=== PATIENT | male | born 1960 | race Caucasian/White ===

== ENCOUNTER 2019-09-13 07:24 | Observation (INO) | payer OTHER ==
[~2019-09-13] VITALS: Ht 182.9 cm; Wt 93.9 kg
[2019-09-13] MEDS ORDERED: XARELTO10 MG ORAL (07:25)
--- NOTE | 2019-09-13 07:30 | NUR ---
ED Nurse Note: Pt BIB RA 829 from home d/t dizziness x4 hours. Pt aox4, denies nausea/vomiting. Placed on hospital gown, cont. cardiac monitor technician showing normal sinus rhythm, and cont. pulse ox; patient saturating 97% on room air. No acute respiratory distress noted. IV access established on right AC, pt tolerated well. Blood collected and sent to lab. ERMD at bedside. Will continue to monitor patient.
--- NOTE | 2019-09-13 07:42 | Emergency Room Report ---
History of Present Illness General Chief Complaint: Dizziness Source: Patient Present Illness HPI Patient presents with 4 hours of dizziness. This started when he was watching TV. He says his equilibrium is off and he has problems standing where he falls backwards. He denies any headache. He feels a strange sensation radiating from the back of his head down his shoulders. He has never had this before. Denies chest pain. Denies palpitations. Patient has a history of atrial fibrillation. He takes Xarelto. He is not on any other medications. Patient is disabled from bipolar disorder and also osteoarthritis of his lower back. No sore throat, nausea, vomiting, diarrhea, dysuria, abdominal pain, shortness of breath, joint pain, rashes, depression, anxiety, visual changes. 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 Reviewed Nursing Documentation: PMH: Agreed; PSxH: Agreed Nursing Documentation-PMH Past Medical History: No History, Except For Review of Systems All Other Systems: negative except mentioned in HPI Physical Exam Vital Signs Date Time Temp Pulse Resp B/P (MAP) Pulse Ox O2 Delivery O2 Flow Rate FiO2 09/13/19 07:21 98.2 90 18 142/84 (103) 98 Room Air Sp02 EP Interpretation: reviewed, normal General Appearance: well appearing, no apparent distress, GCS 15 Head: normocephalic, atraumatic Eyes: bilateral eye EOMI, bilateral eye other - Bilateral Silastic lenses ENT: moist mucus membranes Neck: full range of motion, supple Respiratory: lungs clear, normal breath sounds Cardiovascular #1: regular rate, rhythm, no edema Cardiovascular #2: 2+ radial (R) Gastrointestinal: normal inspection, normal bowel sounds, non tender, no mass, non-distended Musculoskeletal: back normal, gait/station normal, normal range of motion Neurologic: alert, oriented x3, accounting administrative assistant III-XII nml as tested, motor strength/tone normal, DTRs symmetric, sensory intact, speech normal, other - Positive Romberg Psychiatric: mood/affect normal Skin: no rash, warm/dry Medical Decision Making Diagnostic Impression: Primary Impression: Romberg's test positive Additional Impression: Polycythemia ER Course Patient presents with new onset of unstable equilibrium with a strange sensation in the back of his head rating down to his shoulders. Differential includes CVA, posterior bleed on Xarelto, arrhythmia, TIA, anxiety, electrolyte imbalance amongst others. Evaluation with EKG, chest x-ray, MRI of the brain, brainstem and MRA of the circulation. Labs will be obtained also. Repeat neurologic exams indicated. In addition the patient is placed in on the monitor and storage bin tender. The patient is outside of the window for TPA. In addition to that he is on Xarelto. EKG normal sinus rhythm with Q waves inferiorly and P pulmonale. CXR neg. Elevated H/H. CMP normal. MRI without lesion. Baby aspirin given. Patient still with + Romberg. Etiology unclear. The acute nature of this still could be early stroke or TIA. The relationship with the high hemoglobin is unclear. IV hydration begun. Admit tele. Laboratory Tests Test 09/13/19 07:30 09/13/19 09:10 White Blood Count 11.6 K/UL (4.8-10.8) H Red Blood Count 6.22 M/UL (4.70-6.10) H Hemoglobin 20.3 G/DL (14.2-18.0) *H Hematocrit 58.7 % (42.0-52.0) H Mean Corpuscular Volume 94 FL (80-99) Mean Corpuscular Hemoglobin 32.6 PG (27.0-31.0) H Mean Corpuscular Hemoglobin Concent 34.6 G/DL (32.0-36.0) Red Cell Distribution Width 12.3 % (11.6-14.8) Platelet Count 179 K/UL (150-450) Mean Platelet Volume 7.4 FL (6.5-10.1) Neutrophils (%) (Auto) 72.5 % (45.0-75.0) Lymphocytes (%) (Auto) 16.7 % (20.0-45.0) L Monocytes (%) (Auto) 8.7 % (1.0-10.0) Eosinophils (%) (Auto) 1.3 % (0.0-3.0) Basophils (%) (Auto) 0.8 % (0.0-2.0) Prothrombin Time 12.1 SEC (9.30-11.50) H Prothrombin Time INR 1.1 (0.9-1.1) PTT 36 SEC (23-33) H Sodium Level 141 MMOL/L (136-145) Potassium Level 4.1 MMOL/L (3.5-5.1) Chloride Level 106 MMOL/L (98-107) Carbon Dioxide Level 30 MMOL/L (21-32) Anion Gap 6 mmol/L (5-15) Blood Urea Nitrogen 12 mg/dL (7-18) Creatinine 1.0 MG/DL (0.55-1.30) Estimate Glomerular Filtration Rate > 60 mL/min (>60) Glucose Level 116 MG/DL (74-106) H Calcium Level 8.9 MG/DL (8.5-10.1) Total Bilirubin 0.9 MG/DL (0.2-1.0) Aspartate Amino Transferase (AST) 13 U/L (15-37) L Alanine Aminotransferase (ALT) 16 U/L (12-78) Alkaline Phosphatase 66 U/L (46-116) Total Creatine Kinase 56 U/L (26-308) Troponin I 0.000 ng/mL (0.000-0.056) Pro-B-Type Natriuretic Peptide 264 pg/mL (0-125) H Total Protein 7.3 G/DL (6.4-8.2) Albumin 3.5 G/DL (3.4-5.0) Globulin 3.8 g/dL Albumin/Globulin Ratio 0.9 (1.0-2.7) L Urine Color Pale yellow Urine Appearance Clear Urine pH 6 (4.5-8.0) Urine Specific [place] 1.010 (1.005-1.035) Urine Protein Negative (NEGATIVE) Urine Glucose (UA) Negative (NEGATIVE) Urine Ketones Negative (NEGATIVE) Urine Blood Negative (NEGATIVE) Urine Nitrite Negative (NEGATIVE) Urine Bilirubin Negative (NEGATIVE) Urine Urobilinogen Normal MG/DL (0.0-1.0) Urine Leukocyte Esterase Negative (NEGATIVE) Urine Opiates Screen Negative (NEGATIVE) Urine Barbiturates Screen Negative (NEGATIVE) Phencyclidine (PCP) Screen Negative (NEGATIVE) Urine Amphetamines Screen Negative (NEGATIVE) Urine Benzodiazepines Screen Negative (NEGATIVE) Urine Cocaine Screen Negative (NEGATIVE) Urine Marijuana (THC) Screen Negative (NEGATIVE) EKG Diagnostic Results Rate: normal Rhythm: NSR ST Segments: no acute changes - Waves inferiorly and P pulmonale Rhythm Strip Diag. Results EP Interpretation: yes Rhythm: NSR, no PVC's, no ectopy Chest X-Ray Diagnostic Results Chest X-Ray Diagnostic Results : Chest X-Ray Ordered: Yes # of Views/Limited/Complete: 1 View Indication: Other EP Interpretation: Yes Interpretation: no consolidation, no effusion, no pneumothorax, other - some distended loops of bowel - scarring Impression: Other Electronically Signed by: Electronically signed by Sid Foreman MD CT/MRI/US Diagnostic Results CT/MRI/US Diagnostic Results : Imaging Test Ordered: MRI brain Impression Impression: No acute intracranial findings. No evidence of acute CVA. Mild atrophy and evidence of chronic small vessel disease involving white matter tracts. Last Vital Signs Date Time Temp Pulse Resp B/P (MAP) Pulse Ox O2 Delivery O2 Flow Rate FiO2 09/13/19 16:00 97.2 60 18 116/69 (85) 98 09/13/19 10:47 Room Air Status: unchanged Disposition: ADMITTED INPATIENT Condition: Serious Sid Foreman MD Sep 13, 2019 07:42
[2019-09-13] MEDS ORDERED: Gadavist 7.5mMol/7.5ml vial IV PRN (07:45)
--- NOTE | 2019-09-13 07:46 | NUR ---
ED Nurse Note: xray at bedside.
[2019-09-13 07:47] VITALS: BP 134/88
--- NOTE | 2019-09-13 07:59 | NUR ---
ED Nurse Note: Patient taken to MRI; in stable condition.
[2019-09-13 08:01] LABS: BASOPHILS % (AUTO) 0.8 % (0.0-2.0); EOSINOPHILS % (AUTO) 1.3 % (0.0-3.0); HEMATOCRIT 58.7 % (42.0-52.0); LYMPHOCYTES % (AUTO) 16.7 % (20.0-45.0); MEAN CORPUSCULAR VOLUME 94 FL (80-99); MONOCYTES % (AUTO) 8.7 % (1.0-10.0); NEUTROPHILS % (AUTO) 72.5 % (45.0-75.0); PLATELET COUNT 179 K/UL (150-450); RED BLOOD COUNT 6.22 M/UL (4.70-6.10); RED CELL DISTRIBUTION WIDTH 12.3 % (11.6-14.8); WHITE BLOOD COUNT 11.6 K/UL (4.8-10.8)
[2019-09-13 08:02] LABS: HEMOGLOBIN 20.3 G/DL (14.2-18.0)
[2019-09-13 08:07] LABS: INR 1.1 (0.9-1.1)
[2019-09-13 08:11] LABS: ANION GAP 6 mmol/L (5-15); BLOOD UREA NITROGEN 12 mg/dL (7-18); CALCIUM 8.9 MG/DL (8.5-10.1); CARBON DIOXIDE 30 MMOL/L (21-32); CHLORIDE 106 MMOL/L (98-107); POTASSIUM 4.1 MMOL/L (3.5-5.1); SODIUM 141 MMOL/L (136-145)
--- NOTE | 2019-09-13 08:11 | NUR ---
ED Nurse Note: Received lab report for patient's hgb 20.3; Dr Foreman notified and made aware.
[2019-09-13 08:22] LABS: ALANINE AMINOTRANSFERASE 16 U/L (12-78); ALBUMIN 3.5 G/DL (3.4-5.0); ALBUMIN/GLOBULIN RATIO 0.9 (1.0-2.7); ALKALINE PHOSPHATASE 66 U/L (46-116); ASPARTATE AMINO TRANSFERASE 13 U/L (15-37); BILIRUBIN,TOTAL 0.9 MG/DL (0.2-1.0); CREATINE KINASE 56 U/L (26-308)
--- NOTE | 2019-09-13 08:36 | NUR ---
ED Nurse Note: Patient back from MRI; in stable condition
[2019-09-13 08:43] VITALS: BP 120/85
--- NOTE | 2019-09-13 08:51 | Diagnostic Imaging Report ---
Indication: 59-year-old male acute onset dizziness Technique: The head was imaged in a 1.5 Brooke magnet. Sequences obtained include sagittal and axial T1 FLAIR, axial T2 fast spin echo with fat saturation, axial T2* GRE, axial T2 FLAIR, diffusion and ADC map. Comparison: None Findings: There is mild prominence of the sulci, ventricles, and basal cisterns consistent with atrophy. Mild, nonspecific T2 hyperintensity noted within white matter. This may be due to chronic small vessel disease. There is no restricted diffusion. King-white differentiation is normal. There is no mass effect, midline shift, edema, or hemorrhage. There are no abnormal extra-axial or intra-axial fluid collections. The corpus callosum and sella are unremarkable. The brainstem and cerebellum are unremarkable. Bone marrow signal within the visualized osseous structures appears age appropriate and unremarkable otherwise. Impression: No acute intracranial findings. No evidence of acute CVA. Mild atrophy and evidence of chronic small vessel disease involving white matter tracts.
--- NOTE | 2019-09-13 09:13 | NUR ---
ED Nurse Note: urine collected and sent down to lab.
--- NOTE | 2019-09-13 09:20 | NUR ---
ED Nurse Note: ERMD at bedside
[2019-09-13 09:29] LABS: APPEARANCE,URINE CLEAR; BILIRUBIN, URINE NEGATIVE (NEGATIVE); COLOR,URINE PALE YELLOW; GLUCOSE, URINE (UA) NEGATIVE (NEGATIVE); KETONES,URINE NEGATIVE (NEGATIVE); LEUKOCYTE ESTERASE ,URINE NEGATIVE (NEGATIVE); NITRITE,URINE NEGATIVE (NEGATIVE); PH,URINE 6 (4.5-8.0); PROTEIN,URINE NEGATIVE (NEGATIVE); UROBILINOGEN,URINE NORMAL MG/DL (0.0-1.0)
[2019-09-13] MEDS ORDERED: Aspirin Baby 81mg ORAL ONE (09:30)
[2019-09-13 09:35] VITALS: BP 123/61
--- NOTE | 2019-09-13 09:54 | NUR ---
ED Nurse Note: Report given to Surinder RN via telephone.
--- NOTE | 2019-09-13 10:10 | NUR ---
TRANSFER TO FLOOR: Patient transferred to Telemetry room 207-2 as ordered, per Dr Nelson. Report given to SANDEEP Cadena. Belongings inventoried and signed with receiving nurse. Transported pt via [facility] matt protocol. Patient in stable condition.
[2019-09-13 10:20] VITALS: BP 117/73
--- NOTE | 2019-09-13 10:20 | NUR ---
NURSE NOTES: Received report from Lorrie HOPKINS. Patient transferred from ED via [facility] with ED RN and telecommunication tower technician. Pt alert and orientedx3 but forgetful. Patient on gambling monitor and IV line in RAC 20G SL patent and asymptomatic. No c/o pain or no c/o dizziness. No acute distress noted. Inventory list reviewed. Patient's a packof cigaret and a early intervention specialist will bed kept in the patient's chart. Will continue to plan of care.
[2019-09-13 12:00] VITALS: BP 126/75
--- NOTE | 2019-09-13 13:55 | Diagnostic Imaging Report ---
Indication: Dyspnea Comparison: No definite infiltrate or pulmonary vascular congestion identified. The heart is enlarged. The aorta is mildly enlarged consistent with atherosclerotic vascular disease. The bones are osteopenic. Impression: No acute disease A single view chest radiograph was obtained. Findings: Cardiomediastinal appearance is within normal limits for age. The lungs are clear. Pulmonary vascularity is appropriate. The diaphragmatic contour is smooth and costophrenic angles are sharp. No pleural effusions are identified. The bones are unremarkable. Impression: No acute findings
[2019-09-13 16:00] VITALS: BP 116/69
--- NOTE | 2019-09-13 18:05 | NUR ---
AMA: At 17:55 the patient tried to remove his IV line and told the nurse that "Remove the everything now, i am going to leave now." He stated "I need to go to work tomorrow and i want to leave right now". Explained the patient the importance of follow up blood tests scheduled tomorrow morning by Dr. Nelson but the patient tired to removed the material attendant and kept asking RN to remove the IV and material attendant. At 1800 a RN was removing the devices and another RN paged dr. Nelson to notify about the AMA discharge. The patient signed AMA and belonging list At 18:05 the patient left the facility with RN's assist and the patient alert and orientedx4.
--- NOTE | 2019-09-13 18:05 | NUR ---
NURSE NOTES: The patient refused the RN to call anybody to inform the patient's dischage. He said he does not have any family and he is self responsible.
--- NOTE | 2019-09-14 03:30 | History and Physical Report ---
DATE OF ADMISSION: 09/13/2019 HISTORY OF PRESENT ILLNESS: This is a 59-year-old male. He has a history of prostate cancer , who is admitted with complaints of dizziness and weakness on evaluation. According to the patient, he was unsteady feeling. . On evaluation in the emergency room, the patient's MRI of the brain was negative. He was noted on his laboratory that he has a hemoglobin of 20. He has no known history of blood disorders in the past. He was a heavy smoker. PAST MEDICAL HISTORY: As above. PAST SURGICAL HISTORY: None. CURRENT MEDS: Reconciled and reviewed. ALLERGIES: None. SOCIAL HISTORY: The patient has a [id number] history of smoking. No alcohol. No drugs. REVIEW OF SYSTEMS: Negative except for dizziness. PHYSICAL EXAMINATION: VITAL SIGNS: Temperature 98 degrees, blood pressure 117/76, and respirations 20. GENERAL: The patient is well developed, in no apparent distress. HEART: Regular rate and rhythm. LUNGS: Clear. ABDOMEN: Soft, nontender, and nondistended. EXTREMITIES: Without clubbing or cyanosis. NEURO: Grossly nonfocal, although the patient did have a positive Romberg sign in the emergency room. LABORATORY DATA: MRI of the brain showed only chronic changes. White count 11, hemoglobin 20, and hematocrit 58. CMP was unremarkable. Troponin was negative. ASSESSMENT: This is a pleasant male admitted with complaints of dizziness, polycythemia, etiology of which is unclear. PLAN: Hematology consultation. We will check a smear. We will check an EPO level. We will consider phlebotomy. Continue the patient's Xarelto. PT and OT evaluations will be obtained. Raffy Nelson M.D. DR: GIOVANI JOB#: [id number] CC:
[2019-09-14] MEDS ORDERED: Xarelto 10mg tab ORAL SCH ×2 (09:00)
--- NOTE | 2019-09-14 10:29 | NUR ---
*-* INSURANCE *-* ALL AVAILABLE CLINICALS HAVE BE[facility] P: [phone] F: [phone] TRK# [id number]
== END 2019-09-13 18:05 | disposition left against medical advice (07) ==
LOC: EDBD 07:24 → EMR 07:48 → 2E 07:56 → INTOOBSV 07:56 → EDBEDREQ 09:49
DX: R42 Dizziness and giddiness (principal); D75.1 Secondary polycythemia; Z87.891 Personal history of nicotine dependence; Z79.01 Long term (current) use of anticoagulants; F31.9 Bipolar disorder, unspecified; M19.90 Unspecified osteoarthritis, unspecified site; G51.8 Other disorders of facial nerve; I73.9 Peripheral vascular disease, unspecified
CPT/HCPCS: 36415; 36600; 70551; 71045; 80053; 80307; 81003; 82550; 82668; 82803; 83615; 83880; 84484; 85007; 85025; 85060; 85610; 85730; 93005; 96360; 96361; Z7502; 99284; J7030